=== PATIENT | female | born 1995 | race Caucasian/White ===

== ENCOUNTER 2017-01-10 01:16 | Emergency (ER) | payer OTHER, BC ==
[~2017-01-10] VITALS: Ht 175.3 cm; Wt 63.5 kg
[2017-01-10 01:29] VITALS: BP 112/57
[2017-01-10] MEDS ORDERED: Ketorolac 30mg Inj IV ONE (01:45)
[2017-01-10 01:49] LABS: MEAN CORPUSCULAR HEMOGLOBIN 27.3 PG (27.0-31.0); MEAN CORPUSCULAR HGB CONC 32.9 G/DL (32.0-36.0); MEAN CORPUSCULAR VOLUME 83 FL (80-99); MEAN PLATELET VOLUME 8.5 FL (6.5-10.1); PLATELET COUNT 323 K/UL (150-450); RED BLOOD COUNT 5.29 M/UL (4.20-5.40); RED CELL DISTRIBUTION WIDTH 13.1 % (11.6-14.8); WHITE BLOOD COUNT 13.7 K/UL (4.8-10.8)
[2017-01-10 02:10] LABS: ALANINE AMINOTRANSFERASE 8 U/L (3-33); ALBUMIN/GLOBULIN RATIO 1.2 (1.0-2.7); ANION GAP 26 (5-15); ASPARTATE AMINO TRANSFERASE 13 U/L (5-40); CALCIUM 9.9 mg/dL (8.6-10.2); CARBON DIOXIDE 17 mEQ/L (20-30); CHLORIDE 98 mEQ/L (98-107); CREATININE 0.8 mg/dL (0.5-0.9); GLOMERULAR FILTRATION RATE > 60 mL/min (>60); HEMOLYSIS 10; LIPASE 21 U/L (< 60); POTASSIUM 3.8 mEQ/L (3.4-4.9); SODIUM 141 mEQ/L (135-145)
--- NOTE | 2017-01-10 02:37 | Emergency Room Report ---
History of Present Illness General Chief Complaint: General Complaint Source: Patient Present Illness [facility] This is a 21-year-old female with a history of anxiety. She presents with chief complaint of nausea vomiting and diarrhea. Onset today. Unable to keep anything down. [place] very dizzy when she stands up. So much into pass out. Also has numbness to her body. She called 911 and they said that her blood pressure was low. She's been having of cough and congestion the last few days and just started Levaquin for 2 days. No other complaint. Allergies: Coded Allergies: PENICILLINS (Verified Allergy, Unknown, 01/10/17) Patient History Past Medical History: see triage record, old chart reviewed, psych hx Past Surgical History: none Pertinent Family History: none Social History: Denies: smoking Last Menstrual Period: 2 WEEKS AGO Now: No Immunizations: other Reviewed Nursing Documentation: PMH: Agreed, PSxH: Agreed Review of Systems Eye: Denies: blurred vision, eye pain ENT: Denies: ear pain, nose congestion, throat swelling Respiratory: Reports: cough, Denies: shortness of breath Cardiovascular: Denies: chest pain, palpitations Gastrointestinal: Reports: abdominal pain, diarrhea, nausea, vomiting Musculoskeletal: Denies: back pain, joint pain Skin: Denies: rash Neurological: Denies: headache, numbness Endocrine: Denies: increased thirst, increased urine Hematologic/Lymphatic: Denies: easy bruising All Other Systems: negative except mentioned in HPI Physical Exam Vital Signs Date Time Temp Pulse Resp B/P Pulse Ox O2 Delivery O2 Flow Rate FiO2 01/10/17 01:07 98.4 116 18 89/45 98 Room Air vitals with tachycardia and hypotension Sp02 EP Interpretation: reviewed, normal General Appearance: well appearing, no apparent distress, alert Head: normocephalic, atraumatic Eyes: bilateral eye EOMI, bilateral eye PERRL ENT: hearing grossly normal, normal pharynx Neck: full range of motion, supple, no meningismus Respiratory: chest non-tender, lungs clear, normal breath sounds Cardiovascular #1: regular rate, rhythm, no murmur Gastrointestinal: normal bowel sounds, non tender, no mass, no organomegaly, no bruit, non-distended Musculoskeletal: back normal, gait/station normal, normal range of motion Neurologic: alert, oriented x3 Psychiatric: anxious Skin: warm/dry Medical Decision Making Diagnostic Impression: Primary Impression: Nausea vomiting and diarrhea Additional Impression: Dehydration ER Course This is a 21-year-old female who presents with vomiting and diarrhea. Most likely secondary to viral illness. She's doing much better now. Not dizzy when she stands. Blood pressure normal. Heart rate normal. We'll discharge home. Notice of acute abdomen or obstruction. Lab Results Impression labs unremarkable Last Vital Signs Date Time Temp Pulse Resp B/P Pulse Ox O2 Delivery O2 Flow Rate FiO2 01/10/17 01:29 98.0 109 12 112/57 100 Room Air Status: improved Disposition: HOME, SELF-CARE Condition: Stable Scripts Ondansetron (Zofran) 4 Mg Tablet 4 MG ORAL Q6H Y for Nausea & Vomiting, #10 TAB 0 Refills Prov: NAVI VIEIRA M.D. 01/10/17 Additional Instructions: Followup with your DrSom in 2 to 3 days if not better. Return if symptom worsen. Increase fluids as necessary. NAVI VIEIRA M.D. January 10, 2017 02:37
[2017-01-10] MEDS ORDERED: ZOFRAN4 MG ORAL (03:29)
[2017-01-10 03:39] VITALS: BP_SYST 112; BP_SYST 124; BP_DIAS 57; BP_DIAS 64
== END 2017-01-10 03:40 | disposition home or self-care (01) ==
LOC: EDBD 01:16 → EMR 03:14
DX: R11.2 Nausea with vomiting, unspecified (principal); R19.7 Diarrhea, unspecified; E86.0 Dehydration; Z88.0 Allergy status to penicillin
CPT/HCPCS: 36415; 80053; 83690; 85025; 96360; 96374; 96375; 99284; J1885; J2405